=== PATIENT | female | born 2000 | race Hispanic/Latino ===

== ENCOUNTER 2023-09-29 11:09 | Day surgery (SDC) | payer OTHER | END 2023-09-29 13:50 | disposition home or self-care (01) | LOC: CSHLD/OP 11:09 | PROVIDERS: ATTEND Advanced Practice Midwife | DX: O47.1 False labor at or after 37 completed weeks of gestation (principal); O99.213 Obesity complicating pregnancy, third trimester; E66.9 Obesity, unspecified; Z79.82 Long term (current) use of aspirin; Z79.899 Other long term (current) drug therapy; Z3A.39 39 weeks gestation of pregnancy | CPT/HCPCS: 99283 ==

== ENCOUNTER 2023-09-29 19:23 | Day surgery (SDC) | payer OTHER ==
[2023-09-29 20:07] VITALS: BMI 42.7
== END 2023-09-30 02:00 | disposition home or self-care (01) ==
LOC: CSHLD/OP 19:23
PROVIDERS: ATTEND Obstetrics & Gynecology
DX: O47.1 False labor at or after 37 completed weeks of gestation (principal); Z79.899 Other long term (current) drug therapy; Z3A.39 39 weeks gestation of pregnancy
CPT/HCPCS: 99283

== ENCOUNTER 2023-09-30 22:42 | Inpatient (IN) | payer OTHER ==
[2023-09-30 23:11] VITALS: BMI 42.7
[2023-09-30] MEDS ORDERED: Lidocaine 1% (PF) 30 ML VIAL SC PRN (23:25)
[2023-09-30] MEDS ORDERED: hydrALAZINE 20 MG/ML VIAL SLOW IVP PRN (23:25)
[2023-09-30] MEDS ORDERED: Ondansetron PF 4 MG/2 ML Vial IVP PRN (23:25)
[2023-09-30] MEDS ORDERED: Promethazine HCl 25 MG/ML VIAL IM PRN (23:25)
[2023-09-30] MEDS ORDERED: Acetaminophen 500 MG TAB PO PRN (23:26)
[2023-09-30] MEDS ORDERED: Misoprostol 200 MCG TAB PR PRN (23:26)
[2023-09-30] MEDS ORDERED: Carboprost 250 MCG/ML AMP IM PRN (23:26)
[2023-09-30] MEDS ORDERED: fentaNYL 50 mcg/mL 1 mL Vial SLOW IVP PRN (23:26)
[2023-09-30] MEDS ORDERED: Methylergonovine 0.2 MG/ML VIAL IM PRN (23:26)
[2023-09-30] MEDS ORDERED: Tranexamic Acid 1,000 MG/10 ML VIAL IVP PRN (23:26)
[2023-09-30] MEDS ORDERED: Oxytocin 30 units/NS 500 ML 500 ML IV SCH ×3 (23:30)
[2023-09-30] MEDS ORDERED: Lactated Ringer's 1,000 ML IV SCH (23:30)
[2023-10-01 00:23] LABS: Hematocrit 32.1 % (34.9-44.5); Hemoglobin 10.6 g/dL (12.0-15.5); Mean Corpuscular Hemoglobin 26.4 pg (27.0-33.0); Mean Corpuscular Volume 79.9 fl (81.6-98.3); Platelet Count 204 10x3/uL (150-450); RBC Distribution Width 15.4 % (11.5-14.5); Red Blood Cell (RBC) Count 4.02 10x6/uL (3.90-5.03); White Blood Cell (WBC) Count 13.4 10x3/uL (3.5-10.5)
[2023-10-01 01:08] LABS: Syphilis Antibody Nonreactive (Nonreactive); Syphilis Antibody Index 0.03 S/CO (<1.00 Non-Reactive)
[2023-10-01 01:09] LABS: HBSAg Index 0.19 S/CO (0-0.99); Hep B Surf Ag - L&D Non-Reactive S/CO (NonReactive)
[2023-10-01] MEDS ORDERED: fentaNYL/Ropivacaine Epidural 100 ML ONE (04:01)
[2023-10-01] MEDS ORDERED: Naloxone HCl 0.4 mg/ml Vial IVP PRN ×4 (04:52→19:29)
[2023-10-01] MEDS ORDERED: diphenhydrAMINE 50 MG/ML VIAL IVP PRN ×2 (04:52→19:29)
[2023-10-01] MEDS ORDERED: Acetaminophen 325 MG TAB PO PRN (04:52)
[2023-10-01] MEDS ORDERED: ePHEDrine Sulfate 50 MG/10 ML VIAL SLOW IVP PRN (04:52)
[2023-10-01] MEDS ORDERED: Promethazine HCl 25 MG/ML VIAL IM PRN ×2 (04:52→19:29)
[2023-10-01] MEDS ORDERED: Lactated Ringer's 500 ML IV PRN (04:52)
[2023-10-01] MEDS ORDERED: Ondansetron PF 4 MG/2 ML Vial IVP PRN ×3 (04:52→19:29)
[2023-10-01] MEDS ORDERED: Moisturizing Cream (Eucerin) 113 GM JAR TOP PRN ×2 (04:52→19:29)
[2023-10-01] MEDS ORDERED: Communication Order-Pharmacy FS SCH ×2 (05:00→19:30)
[2023-10-01] MEDS ORDERED: fentaNYL 2 mcg/Ropivacaine 0.2% Epidural 100 ML CADD EPIDURAL SCH (05:00)
[2023-10-01] MEDS ORDERED: Oxytocin 30 units/NS 500 ML 500 ML ONE (08:02)
[2023-10-01] MEDS ORDERED: CEFAZOLIN 2 GM VIAL ONE (17:51)
[2023-10-01] MEDS ORDERED: Azithromycin 500 MG VIAL ONE (17:52)
[2023-10-01] MEDS ORDERED: Azithromycin 500 MG in Sodium Chloride 0.9% 250 ML 250 ML IVPB SCH (18:00)
[2023-10-01] MEDS ORDERED: CEFAZOLIN 2 GM in Sodium Chloride 0.9% 100 ML IVPB SCH (18:00)
[2023-10-01] MEDS ORDERED: Bicitra 30 ML UDCUP PO PRN (18:00)
[2023-10-01] MEDS ORDERED: Famotidine/PF 20 mg/2ml Vial SLOW IVP PRN (18:00)
[2023-10-01] MEDS ORDERED: Lidocaine 2% MPF 10 ML AMP (For Epidural Use) ONE (18:05)
[2023-10-01] MEDS ORDERED: Morphine PF 10 MG/10 ML VIAL ONE (18:33)
[2023-10-01] MEDS ORDERED: Ondansetron PF 4 MG/2 ML Vial ONE (18:33)
[2023-10-01] MEDS ORDERED: Dexamethasone 4 mg/ml Vial ONE (18:33)
[2023-10-01] MEDS ORDERED: Metoclopramide HCl 10 MG (2 mL) VIAL ONE (18:33)
[2023-10-01] MEDS ORDERED: Oxytocin 10 UNITS/ML VIAL ONE ×2 (18:33→18:58)
[2023-10-01] MEDS ORDERED: Ketorolac Tromethamine 30 MG/ML VIAL ONE (18:51)
[2023-10-01] MEDS ORDERED: Phenylephrine 10 MG/ML VIAL ONE (18:54)
[2023-10-01] MEDS ORDERED: Terbutaline Sulfate 1 MG/ML VIAL ONE (18:55)
[2023-10-01] MEDS ORDERED: PHENYLEPHRINE-NS 100 MCG/ML 10 ML SYRINGE ONE (18:57)
[2023-10-01 18:58] LABS: Analyzer IN Cardio CS NICU; Critical Notified By: Udy, RRT; RapidComm Collect By L&D
[2023-10-01 19:00] LABS: Analyzer IN Cardio CS NICU; Critical Notified By: Udy, RRT; RapidComm Collect By L&D
[2023-10-01] MEDS ORDERED: Promethazine HCl 25 MG SUPP PR PRN (19:29)
[2023-10-01] MEDS ORDERED: Naloxone HCl 0.4 mg/ml Vial IV PRN (19:29)
[2023-10-01] MEDS ORDERED: Meperidine HCl/PF 25 MG (1 mL) VIAL SLOW IVP PRN (19:29)
[2023-10-01] MEDS ORDERED: Morphine 4 MG/ML VIAL SLOW IVP PRN (19:29)
[2023-10-01] MEDS ORDERED: fentaNYL 50 mcg/mL 1 mL Vial SLOW IVP PRN (19:29)
[2023-10-01 21:08] LABS: D-Dimer Test 4.8 mg/L FEU (0.19-0.50); INR-International Normal Ratio 0.9; PTT 28.2 sec (22.0-33.0); Prothrombin Time 9.9 sec (9.5-12.1)
[2023-10-01] MEDS ORDERED: Boostrix 0.5 ML (Tdap) VIAL (>/=7 yrs of age) IM ONE (22:19)
[2023-10-01] MEDS ORDERED: Oxytocin 30 units/NS 500 ML 500 ML IV SCH (22:19)
[2023-10-01] MEDS ORDERED: Methylergonovine 0.2 MG/ML VIAL IM PRN (22:19)
[2023-10-01] MEDS ORDERED: hydrALAZINE 20 MG/ML VIAL SLOW IVP PRN (22:19)
[2023-10-01] MEDS ORDERED: Simethicone Chewable 80 MG TAB PO PRN (22:19)
[2023-10-01] MEDS ORDERED: Misoprostol 200 MCG TAB PR PRN (22:19)
[2023-10-01] MEDS ORDERED: Docusate 100 MG CAP PO SCH (22:30)
[2023-10-01] MEDS ORDERED: Polyethylene Glycol 3350 17 GM Packet PO SCH (23:00)
[2023-10-02 03:30] LABS: Hematocrit 27.3 % (34.9-44.5); Hemoglobin 9.1 g/dL (12.0-15.5); Mean Corpuscular HGB CONC 33.3 g/dL (32.0-36.0); Mean Corpuscular Hemoglobin 26.9 pg (27.0-33.0); Mean Corpuscular Volume 80.8 fl (81.6-98.3); Mean Platelet Volume 11.6 fl (7.4-10.4); Platelet Count 200 10x3/uL (150-450); RBC Distribution Width 15.4 % (11.5-14.5); Red Blood Cell (RBC) Count 3.38 10x6/uL (3.90-5.03); White Blood Cell (WBC) Count 14.4 10x3/uL (3.5-10.5)
[2023-10-02] MEDS: Ketorolac Tromethamine 30 MG/ML VIAL IVP PRN ×3 (05:53→18:15)
[2023-10-02] MEDS ORDERED: Ferrous Sulfate 325 MG TAB PO SCH (06:30)
[2023-10-02] MEDS ORDERED: HYDROcodone/Acetaminophen 5/325 mg Tablet PO PRN ×2 (07:30)
[2023-10-02] MEDS: Docusate 100 MG CAP PO SCH ×2 (09:22→21:11)
[2023-10-02] MEDS: Prenatal Vitamin 1 TAB PO SCH (09:22)
[2023-10-02] MEDS: Polyethylene Glycol 3350 17 GM Packet PO SCH ×2 (09:23→21:11)
[2023-10-03] MEDS: Ketorolac Tromethamine 30 MG/ML VIAL IVP PRN (00:07)
[2023-10-03] MEDS ORDERED: Ibuprofen 800 MG TAB PO SCH (06:00)
[2023-10-03] MEDS: Lactated Ringer's 1,000 ML IV SCH ×2 (06:59→07:00)
[2023-10-03] MEDS: Docusate 100 MG CAP PO SCH (07:38)
[2023-10-03] MEDS: Prenatal Vitamin 1 TAB PO SCH (07:38)
[2023-10-03] MEDS: Polyethylene Glycol 3350 17 GM Packet PO SCH (07:38)
[2023-10-03] MEDS ORDERED: Acetaminophen 500 MG TAB PO PRN (08:02)
[2023-10-03 11:19] VITALS: BP 117/60; TEMP 98.7
== END 2023-10-03 13:00 | disposition home or self-care (01) | DRG 788 ==
LOC: CSHLD/OP 22:42 → CSHLD 10-01 08:17 → CSHPP 10-01 21:54
PROVIDERS: ADMIT Obstetrics & Gynecology; ATTEND Obstetrics & Gynecology
PROC: 10D00Z1 Extraction of Products of Conception, Low, Open Approach (ICD-10-PCS; principal; 2023-10-01)
PROC: 10907ZC Drainage of Amniotic Fluid, Therapeutic from Products of Conception, Via Natural or Artificial Opening (ICD-10-PCS; 2023-10-01)
PROC: 10H07YZ Insertion of Other Device into Products of Conception, Via Natural or Artificial Opening (ICD-10-PCS; 2023-10-01)
DX: O99.214 Obesity complicating childbirth (principal); Z3A.39 39 weeks gestation of pregnancy; Z37.0 Single live birth; E66.9 Obesity, unspecified; O77.0 Labor and delivery complicated by meconium in amniotic fluid; O76 Abnormality in fetal heart rate and rhythm complicating labor and delivery; O32.2XX0 Maternal care for transverse and oblique lie, not applicable or unspecified; N80.00 Endometriosis of the uterus, unspecified; O99.892 Other specified diseases and conditions complicating childbirth; O62.4 Hypertonic, incoordinate, and prolonged uterine contractions; O72.1 Other immediate postpartum hemorrhage
CPT/HCPCS: 36415; 51702; 82805; 85027; 85049; 85300; 85362; 85379; 85384; 85610; 85730; 86780; 86850; 86900; 86901; 87340; 88307; 99285; J1100; J1885; J2274; J2370; J2405; J2590; J2765; J3105